=== PATIENT | male | born 2000 | race Caucasian/White ===

== ENCOUNTER 2022-08-16 10:18 | Emergency (ER) | payer OTHER ==
--- NOTE | 2022-08-16 12:03 | ED Physician Documentation ---
History of Present Illness - Stated complaint Stated Complaint: CHEST PX - Chief complaint Chief Complaint: Cardiac - Additonal information Additional information: 22-year-old male presenting with chief complaint of chest pain. States "I think I had a heart attack 1 week ago". [place] did [place] seek medical care. Was experiencing heart palpitations with associated chest pain that lasted approximately 1 hour. Reports he "googled" his symptoms and that made him very concerned. Reports an uncle that had a heart attack at age 50. Denies any history of hypertension, dyslipidemia, diabetes, smoking or illicit substance abuse. Review of Systems Ten Systems: 10 systems reviewed and negative Constitutional: denies: Fever Eyes: denies: Loss of vision Ears: denies: Loss of hearing Nose: denies: Rhinorrhea / runny nose Throat: denies: Dental pain / toothache Cardiac: reports: Chest pain / pressure, Palpitations Respiratory: denies: Cough GI: denies: Abdominal Pain PD PAST MEDICAL HISTORY - Present Medications Home Medications: Ambulatory Orders Medication Instructions Recorded Confirmed No Known Home Medications 08/16/22 08/16/22 - Allergies Allergies/Adverse Reactions: Allergies Allergy/AdvReac Type Severity Reaction Status Date / Time No Known Drug Allergies Allergy Verified 08/16/22 10:29 PD ED PE NORMAL - General General: Alert and oriented X 3, No acute distress, Well developed/nourished - HEENT HEENT: Atraumatic - Neck Neck: Supple, no meningeal sign - Cardiac Cardiac: RRR, No gallop, Strong equal pulses - Respiratory Respiratory: No respiratory distress, Clear bilaterally - Abdomen Abdomen: Normal bowel sounds, Non tender - Male Male : Deferred - Back Back: No CVA TTP - Derm Derm: Normal color - Extremities Extremities: No deformity Results - Vitals Vitals: Vital Signs - 24 hr 08/16/22 10:22 Temperature 36.9 C Heart Rate 96 Respiratory 16 Rate Blood Pressure 150/91 H O2 Saturation 98 Oxygen O2 Source Room air - EKG (time done) 1033 Rate: Rate (enter#) (88) Rhythm: NSR Hyndman: Normal Intervals: Normal [place] QRS: Normal Ischemia: Normal ST segments Computer interpretation: Agree with computer - Labs Labs: Laboratory Tests 08/16/22 08/16/22 08/16/22 12:27 12:27 12:27 WBC 8.5 RBC 5.21 Hgb 16.0 Hct 47.5 MCV 91.2 MCH 30.7 MCHC 33.7 RDW 13.2 Plt Count 289 MPV 9.6 Neut # (Auto) 5.5 Lymph # (Auto) 2.1 Avery # (Auto) 0.8 Eos # (Auto) 0.1 Baso # (Auto) 0.0 Absolute Nucleated RBC 0.00 Nucleated RBC % 0.0 D-Dimer 240.9 Sodium 139 Potassium 3.9 Chloride 106 Carbon Dioxide 24 Anion Gap 9.0 BUN 16 Creatinine 0.9 Estimated GFR (MDRD) 105 Glucose 92 Calcium 9.6 Total Bilirubin 0.6 AST 36 ALT 63 H Alkaline Phosphatase 46 Troponin I High Sens Total Protein 7.2 Albumin 4.6 Globulin 2.6 Albumin/Globulin Ratio 1.8 Lipase 32 08/16/22 12:27 WBC RBC Hgb Hct MCV MCH MCHC RDW Plt Count MPV Neut # (Auto) Lymph # (Auto) Avery # (Auto) Eos # (Auto) Baso # (Auto) Absolute Nucleated RBC Nucleated RBC % D-Dimer Sodium Potassium Chloride Carbon Dioxide Anion Gap BUN Creatinine Estimated GFR (MDRD) Glucose Calcium Total Bilirubin AST ALT Alkaline Phosphatase Troponin I High Sens 3.5 Total Protein Albumin Globulin Albumin/Globulin Ratio Lipase PD MEDICAL DECISION MAKING - ED course Complexity details: reviewed results, d/w patient ED course: Patient 22-year-old Male presenting with chest pain. Event occurred 1 week ago. He expressed concern that it may have been a heart attack. Afebrile, hemodynamically stable. Normal EKG, normal troponin, the remainder of his labs within normal limits. Will discharge with instructions for follow-up with primary care. Clear return precautions given. Departure - Departure Disposition: 01 Home, Self Care Clinical Impression: Chest pain Instructions: ED Chest Pain NonCardiac Comments: Thank you for allowing us to care for you today at [facility]. Today in the emergency department your evaluated for any possible life- threatening medical emergency. Please drinkAll the testing performed in the emergency department today including your EKG and blood work were all very reassuring. There is no indication of injury to the muscle of your heart. Fluids and get plenty of rest. Please follow-up with your primary care doctor soon as possible. If you are in need of a primary care doctor included contact information for a local area [facility] you can contact to establish care. If anytime you develop any new or worsening symptoms please not hesitate to retu rn.
[2022-08-16 12:35] LABS: BASOPHILS % (AUTO) 0.5 %; EOSINOPHILS # (AUTO) 0.1 10^3/uL (0.0-0.7); EOSINOPHILS % (AUTO) 1.1 %; HCT - HEMATOCRIT 47.5 % (42.0-52.0); LYMPHOCYTES # (AUTO) 2.1 10^3/uL (1.5-3.5); LYMPHOCYTES % (AUTO) 24.5 %; MEAN CORPUSCULAR HEMOGLOBIN 30.7 pg (27.0-31.0); MEAN CORPUSCULAR HGB CONC 33.7 g/dL (32.0-36.0); MEAN CORPUSCULAR VOLUME 91.2 fL (80.0-94.0); MEAN PLATELET VOLUME 9.6 fL (7.4-11.4); MONOCYTES # (AUTO) 0.8 10^3/uL (0.0-1.0); MONOCYTES % (AUTO) 9.2 %; NEUTROPHILS # (AUTO) 5.5 10^3/uL (1.5-6.6); NEUTROPHILS % (AUTO) 64.5 %; PLT - PLATELET COUNT 289 10^3/uL (130-450); RED BLOOD COUNT 5.21 10^6/uL (4.70-6.10); RED CELL DISTRIBUTION WIDTH 13.2 % (12.0-15.0); WHITE BLOOD COUNT 8.5 x10^3/uL (4.8-10.8)
[2022-08-16 12:47] LABS: ALBUMIN 4.6 g/dL (3.2-5.5); ALBUMIN/GLOBULIN RATIO 1.8 (1.0-2.2); BILIRUBIN,TOTAL 0.6 mg/dL (0.2-1.0); CREATININE 0.9 mg/dL (0.6-1.2); TOTAL PROTEIN 7.2 g/dL (6.7-8.2)
[2022-08-16 13:21] LABS: CALCIUM 9.6 mg/dL (8.5-10.3); POTASSIUM 3.9 mmol/L (3.5-5.0)
[2022-08-16 14:12] VITALS: BP 128/79
== END 2022-08-16 14:13 | disposition home or self-care (01) ==
LOC: ED 10:18
DX: R07.9 Chest pain, unspecified (principal)
CPT/HCPCS: 36415; 80053; 83690; 84484; 85025; 85379; 93005; 99282; 99283

== ENCOUNTER 2024-03-14 15:03 | Emergency (ER) | payer OTHER ==
[2024-03-14 15:37] LABS: BILIRUBIN,URINE NEGATIVE (NEGATIVE); GLUCOSE, URINE (UA) NEGATIVE (NEGATIVE); KETONES,URINE (UA) NEGATIVE (NEGATIVE); LEUKOCYTE ESTERASE, URINE NEGATIVE (NEGATIVE); NITRITE,URINE NEGATIVE (NEGATIVE); OCCULT BLOOD,URINE NEGATIVE (NEGATIVE); PROTEIN,URINE NEGATIVE (NEGATIVE); UROBILINOGEN,URINE 0.2 (NORMAL) E.U./dL (NORMAL)
[2024-03-14 15:38] LABS: CLARITY,URINE CLEAR (CLEAR)
[2024-03-14 15:40] LABS: BASOPHILS # (AUTO) 0.1 10^3/uL (0.0-0.1); BASOPHILS % (AUTO) 0.8 %; EOSINOPHILS # (AUTO) 0.1 10^3/uL (0.0-0.7); EOSINOPHILS % (AUTO) 1.4 %; HCT - HEMATOCRIT 48.7 % (42.0-52.0); HGB - HEMOGLOBIN 15.9 g/dL (14.0-18.0); LYMPHOCYTES # (AUTO) 2.5 10^3/uL (1.5-3.5); LYMPHOCYTES % (AUTO) 33.8 %; MEAN CORPUSCULAR HEMOGLOBIN 29.9 pg (27.0-31.0); MEAN CORPUSCULAR HGB CONC 32.6 g/dL (32.0-36.0); MEAN CORPUSCULAR VOLUME 91.7 fL (80.0-94.0); MEAN PLATELET VOLUME 9.8 fL (7.4-11.4); MONOCYTES # (AUTO) 0.8 10^3/uL (0.0-1.0); NEUTROPHILS # (AUTO) 3.9 10^3/uL (1.5-6.6); NEUTROPHILS % (AUTO) 52.7 %; PLT - PLATELET COUNT 279 10^3/uL (130-450); RED BLOOD COUNT 5.31 10^6/uL (4.70-6.10); RED CELL DISTRIBUTION WIDTH 12.7 % (12.0-15.0); WHITE BLOOD COUNT 7.3 x10^3/uL (4.8-10.8)
[2024-03-14 15:58] LABS: ALBUMIN 4.6 g/dL (3.2-5.5); ALBUMIN/GLOBULIN RATIO 2.3 (1.0-2.2); BILIRUBIN,TOTAL 0.5 mg/dL (0.2-1.0); CALCIUM 9.7 mg/dL (8.5-10.3); CREATININE 1.2 mg/dL (0.6-1.3); POTASSIUM 3.9 mmol/L (3.5-4.5); TOTAL PROTEIN 6.6 g/dL (6.4-8.9)
--- NOTE | 2024-03-14 19:01 | ED Physician Documentation ---
PD HPI ABD PAIN - Stated complaint Stated Complaint: LRQ ABD PX,DIZZINESS - Chief complaint Chief Complaint: Abd Pain - Additional information Additional information: 24-year-old male no pertinent past medical history presents emergency department for right lower quadrant pain. Patient says that this has been going on now for the last 2 to 3 days it has not necessarily gotten worse but it has not improved. He did note that with 1 episode of the right lower quadrant pain he had an episode of dizziness. No diarrhea no fevers or chills no nausea or vomiting no difficulty with urination no urinary urgency or frequency. PD PAST MEDICAL HISTORY - Past Medical History Past Medical History: No - Past Surgical History Past Surgical History: Yes - Present Medications Home Medications: Ambulatory Orders Medication Instructions Recorded Confirmed No Known Home Medications 08/16/22 08/16/22 - Allergies Allergies/Adverse Reactions: Allergies Allergy/AdvReac Type Severity Reaction Status Date / Time No Known Drug Allergies Allergy Verified 03/14/24 15:26 - Social History Does the pt smoke?: No Smoking Status: Never smoker Does the pt drink ETOH?: Yes Does the pt have substance abuse?: No - Immunizations Immunizations are current?: Yes PD ED PE NORMAL - Vitals Vital signs reviewed: Yes - General General: Alert and oriented X 3, No acute distress, Well developed/nourished - Abdomen Abdomen: Normal bowel sounds, Soft, Non tender, Non distended, No organomegaly - Back Back: No CVA TTP - Derm Derm: Normal color, Warm and dry, No rash Results - Vitals Vitals: Vital Signs - 24 hr 03/14/24 03/14/24 03/14/24 15:23 18:27 19:16 Temperature 36.7 C Heart Rate 91 68 73 Respiratory 18 18 16 Rate Blood Pressure 118/70 122/68 105/56 L O2 Saturation 99 100 99 Oxygen O2 Source Room air - Labs Labs: Laboratory Tests 03/14/24 03/14/24 03/14/24 15:32 15:34 15:34 WBC 7.3 RBC 5.31 Hgb 15.9 Hct 48.7 MCV 91.7 MCH 29.9 MCHC 32.6 RDW 12.7 Plt Count 279 MPV 9.8 Neut # (Auto) 3.9 Lymph # (Auto) 2.5 Harmon # (Auto) 0.8 Eos # (Auto) 0.1 Baso # (Auto) 0.1 Absolute Nucleated RBC 0.00 Nucleated RBC % 0.0 Sodium 139 Potassium 3.9 Chloride 105 Carbon Dioxide 27 Anion Gap 7.0 BUN 17 Creatinine 1.2 Estimated GFR (MDRD) 74 L Glucose 99 Calcium 9.7 Total Bilirubin 0.5 AST 20 ALT 25 Alkaline Phosphatase 55 Total Protein 6.6 Albumin 4.6 Globulin 2.0 L Albumin/Globulin Ratio 2.3 H Lipase 24 Urine Color YELLOW Urine Clarity CLEAR Urine pH 6.0 Ur Specific Bradner 1.025 Urine Protein NEGATIVE Urine Glucose (UA) NEGATIVE Urine Ketones NEGATIVE Urine Occult Blood NEGATIVE Urine Nitrite NEGATIVE Urine Bilirubin NEGATIVE Urine Urobilinogen 0.2 (NORMAL) Ur Leukocyte Esterase NEGATIVE Ur Microscopic Review NOT INDICATED Urine Culture Comments NOT INDICATED PD Medical Decision Making - ED course ED course: 24-year-old male presents emergency department for right lower quadrant pain. Differentials include but are not limited to constipation, diverticulitis, appendicitis. Labs are complete for further evaluation white count is within normal limits no leukocytosis no anemia normal electrolytes, normal chemistry and normal urinalysis. On physical exam patient does not have any rebound tenderness and no tenderness with palpation of right lower quadrant.I do not believe patient is experiencing an acute surgical abdomen no rebound tenderness no guarding of the abdomen and physical exam is very unremarkable. I am not sure what is causing patient's right lower quadrant pain or tenderness. He did state that he had episode of dizziness once but that has now fully resolved. Patient is told to follow-up with his primary care provider for further evaluation of this but at this point time I do not believe imaging is warranted and patient is relieved and very reassured and said that he would like to skip a CT scan if possible. Return precautions given all questions answered patient is safe for discharge at this time. Departure - Departure Disposition: 01 Home, Self Care Clinical Impression: Abdominal pain Instructions: Abdominal Pain Comments: Thank you for trusting us with your care. We have completed labs as well as pain urinalysis and we are not seeing any acute abnormal findings at this point in time. I do not believe further investigation is warranted at this point in time in terms of doing a CT scan. Please follow your primary care provider about today's ER visit keep a food log notice if any foods are triggering in this right lower quadrant pain. Please come back to the ER if your symptoms get any worse if you are starting to notice any fevers or chills or any other concerning symptoms. Forms: PCP List Discharge Date/Time: 03/14/24 19:16
[2024-03-14 19:21] VITALS: BP 105/56; O2SAT 99
== END 2024-03-14 19:16 | disposition home or self-care (01) ==
LOC: ED 15:03
DX: R10.31 Right lower quadrant pain (principal)
CPT/HCPCS: 36415; 80053; 81001; 81003; 83690; 85025; 87086; 99283; 99284